=== PATIENT | female | born 1975 | race Caucasian/White ===

== ENCOUNTER 2017-04-04 19:38 | Emergency (ER) | payer OTHER ==
[~2017-04-04] VITALS: Ht 162.6 cm; Wt 100.4 kg
[~2017-04-04 19:38] MED LIST: ALTAVERA1 EACH PO; KEFLEX500 MG PO; LASIX20 MG PO; NAPROSYN500 MG PO; SYNTHROID112 MCG PO; ULTRAM50 MG PO
[2017-04-04 20:36] LABS: APPEARANCE CLOUDY ((CLEAR)); BILIRUBIN NEGATIVE; BLOOD LARGE; COLOR AMBER ((YELLOW)); GLUCOSE (STRIP) NEGATIVE; KETONES NEGATIVE; LEUKOCYTES NEGATIVE; NITRITE NEGATIVE; PROTEIN (STRIP) 100; SPECIFIC GRAVITY 1.026 (1.000-1.030); UROBILINOGEN 0.2 MG/DL (0.2-1.0)
[2017-04-04 20:47] LABS: EPITHELIAL CELLS 1+ /HPF; MUCUS 2+ /LPF
[2017-04-04 20:47] LABS: HEMATOCRIT 43.5 % (36.0-46.0); HEMOGLOBIN 14.7 G/DL (11.9-15.5); MCH 30.1 PG (29.0-34.0); MCHC 33.8 G/DL (30.0-36.0); PLATELET COUNT 342 K/uL (156-360); RBC DIS.WIDTH-CV 12.7 % (11.8-14.6); RBC DIS.WIDTH-SD 41.5 % (39-53); RED BLOOD COUNT 4.89 M/uL (3.80-5.20); WHITE BLOOD COUNT 11.5 K/uL (4.1-10.2)
[2017-04-04 20:48] LABS: BACTERIA 2+ /HPF; RED BLOOD CELLS TNTC /HPF (0-5); UCUL ADDED? YES
[2017-04-04 21:07] LABS: ALBUMIN 4.3 G/DL (3.2-4.8); CHLORIDE 101 MEQ/L (99-109); POTASSIUM 3.6 MEQ/L (3.7-5.4); SODIUM 136 MEQ/L (136-147); TOTAL BILIRUBIN 0.6 MG/DL (0.0-1.0)
[2017-04-04 21:13] LABS: ALKALINE PHOSPHATASE 61 IU/L (3-129); ALT (GPT) 23 IU/L (3-49); AST (GOT) 17 IU/L (2-34); CREATININE 0.6 MG/DL (0.6-1.3); GFR ESTIMATE (CALCULATED) > 59 mL/min/; GLUCOSE 94 mg/dL (70-99); TOTAL PROTEIN 8.1 G/DL (6.4-8.3); UREA NITROGEN (BUN) 11 mg/dL (9-23)
[2017-04-04 21:23] LABS: LIPASE 17 U/L (1.0-51.0)
[2017-04-04] MEDS ORDERED: PERCOCET 5/31 TABLET PO (22:25)
[2017-04-04] MEDS ORDERED: CIPRO500 MG PO (22:25)
[2017-04-04 22:53] VITALS: BP 132/84
== END 2017-04-04 22:54 | disposition home or self-care (01) ==
LOC: RME 19:38 → EME 19:38 → RME 22:54
DX: N20.0 Calculus of kidney (principal); N39.0 Urinary tract infection, site not specified; K21.9 Gastro-esophageal reflux disease without esophagitis; Z87.442 Personal history of urinary calculi
CPT/HCPCS: 74176; 80053; 81003; 83690; 85027; 87086; 99281; 99285; J0696; J1885

== ENCOUNTER 2017-04-17 11:34 | Day surgery (SDC) | payer OTHER ==
[~2017-04-17] VITALS: Ht 162.6 cm; Wt 100.3 kg
[~2017-04-17 11:34] MED LIST changes: +CIPRO500 MG PO; +ENDOCET 5-3251 EACH PO; +PERCOCET 5/31 TABLET PO; +SYNTHROID75 MCG PO
[2017-04-17 13:48] VITALS: BP 124/81
[2017-04-17 15:40] VITALS: BP 129/85
== END 2017-04-17 16:13 | disposition home or self-care (01) ==
LOC: SDC 11:34
PROC: 0T778DZ Dilation of Left Ureter with Intraluminal Device, Via Natural or Artificial Opening Endoscopic (ICD-10-PCS; principal; 2017-04-17)
PROC: 0TP98DZ Removal of Intraluminal Device from Ureter, Via Natural or Artificial Opening Endoscopic (ICD-10-PCS; principal; 2017-04-17)
PROC: 0TF78ZZ Fragmentation in Left Ureter, Via Natural or Artificial Opening Endoscopic (ICD-10-PCS; principal; 2017-04-17)
PROC: BT1F1ZZ Fluoroscopy of Left Kidney, Ureter and Bladder using Low Osmolar Contrast (ICD-10-PCS; principal; 2017-04-17)
DX: N20.2 Calculus of kidney with calculus of ureter (principal); E03.9 Hypothyroidism, unspecified; K21.9 Gastro-esophageal reflux disease without esophagitis
CPT/HCPCS: 87641; C1894; C2625; J1100; J1170; J1580; J1885; J2405; J3010; J7050